=== PATIENT | male | born 1990 | race Caucasian/White ===

== ENCOUNTER 2021-03-02 10:06 | Observation (INO) ==
[2021-03-02] MEDS ORDERED: Tdap (Boostrix) Vaccine 0.5 ML SYRINGE IM ONE (10:57)
[2021-03-02] MEDS ORDERED: Piperacillin/Tazobactam 3.375 GM in 0.9 % Sodium Chloride Mini Bag 100 ML IVPB ONE (10:57)
[2021-03-02] MEDS ORDERED: *HR* LORazepam 2 MG/ML VIAL IVP ONE (11:42)
[2021-03-02 11:43] LABS: Basophils % 0.2 %; Eosinophils # 0.3 K/mcL (0.0-0.6); Eosinophils % 2.8 %; Hematocrit 46.9 % (37.5-50.1); Hemoglobin 15.1 g/dL (12.9-16.9); Immature Granulocytes % 0.4 % (0-4); Lymphocytes # 3.2 K/mcL (0.6-4.6); Lymphocytes % 27.7 %; Mean Corpuscular HGB Conc 32.2 g/dL (31.6-35.5); Mean Corpuscular Hemoglobin 28.9 pg (28.0-33.3); Mean Corpuscular Volume 89.7 fL (83.0-100.0); Mean Platelet Volume 9.8 fL (9.4-12.4); Monocytes % 8.7 %; Neutrophils # 6.9 K/mcL (1.6-8.9); Platelet Count 298 K/mcL (140-400); Red Blood Count 5.23 M/mcL (4.19-5.50); Red Cell Distribution Width 12.7 % (11.5-14.5); Segmented Neutrophils % 60.2 %; White Blood Count 11.4 K/mcL (4.3-11.1)
[2021-03-02 12:02] LABS: BUN/Creatinine Ratio 11 (6-26); Blood Urea Nitrogen 9 mg/dL (6-20); Calcium 9.2 mg/dL (8.6-10.3); Carbon Dioxide 27 mEq/L (23-29); Chloride 105 mEq/L (98-107); Glucose 95 mg/dL (70-105); Osmolality,Calculated 286 (280-300); Sodium 139 mEq/L (136-145); eGFR For African Americans > 60 (> 60); eGFR For Non-African Americans > 60 (> 60)
[2021-03-02] MEDS ORDERED: *HR* LORazepam 1 MG TABLET PO ONE (12:21)
[2021-03-02] MEDS ORDERED: Ondansetron ODT 4 MG TAB.RAPDIS SL PRN (12:44)
[2021-03-02] MEDS ORDERED: Ibuprofen 400 MG TABLET PO PRN (12:44)
[2021-03-02] MEDS ORDERED: Melatonin 3 MG TABLET PO PRN (12:44)
[2021-03-02 12:47] LABS: C-Reactive Protein < 5 mg/L (Less than 10)
[2021-03-02] MEDS ORDERED: CeFAZolin 2,000 MG/120 ML BAG IVPB SCH (13:00)
[2021-03-02] MEDS: Nicotine 2 MG GUM BC PRN ×2 (15:51→21:48)
[2021-03-02] MEDS: Nicotine 21 MG PATCH.TD24 TD SCH (15:51)
[2021-03-02] MEDS: hydrOXYzine pamoate 25 MG CAPSULE PO PRN ×2 (15:51→22:35)
[2021-03-02 19:48] LABS: Amphetamine Screen,Urine Negative ng/mL (Cutoff=1000); Barbiturate Screen,Urine Negative ng/mL (Cutoff=200); Benzodiazepines Screen,Urine Negative ng/mL (Cutoff=200); Cannabinoid Screen,Urine Positive ng/mL (Cutoff = 50); Cocaine Screen,Urine Negative ng/mL (Cutoff= 300); Opiate Screen,Urine Negative ng/mL (Cutoff=300); Phencyclidine Screen,Urine Negative ng/mL (Cutoff=25)
[2021-03-02] MEDS: CeFAZolin 2,000 MG/120 ML BAG IVPB SCH (21:38)
[2021-03-02 23:38] VITALS: O2SAT 98
[2021-03-03 02:37] LABS: Hematocrit 43.5 % (37.5-50.1); Hemoglobin 13.9 g/dL (12.9-16.9); Mean Corpuscular Hemoglobin 28.8 pg (28.0-33.3); Mean Corpuscular Volume 90.2 fL (83.0-100.0); Mean Platelet Volume 10.2 fL (9.4-12.4); Platelet Count 271 K/mcL (140-400); Red Blood Count 4.82 M/mcL (4.19-5.50); Red Cell Distribution Width 12.5 % (11.5-14.5); White Blood Count 10.5 K/mcL (4.3-11.1)
[2021-03-03 02:51] LABS: BUN/Creatinine Ratio 11 (6-26); Blood Urea Nitrogen 10 mg/dL (6-20); Calcium 9.3 mg/dL (8.6-10.3); Carbon Dioxide 26 mEq/L (23-29); Chloride 109 mEq/L (98-107); Glucose 100 mg/dL (70-105); Osmolality,Calculated 291 (280-300); Potassium 4.2 mEq/L (3.5-5.1); Sodium 141 mEq/L (136-145); eGFR For African Americans > 60 (> 60); eGFR For Non-African Americans > 60 (> 60)
[2021-03-03] MEDS: CeFAZolin 2,000 MG/120 ML BAG IVPB SCH (05:09)
[2021-03-03] MEDS: Nicotine 2 MG GUM BC PRN (05:18)
[2021-03-03 07:41] VITALS: BP 125/71; PULSE 67; TEMP 97.9
[2021-03-03] MEDS: Nicotine 21 MG PATCH.TD24 TD SCH (07:57)
== END 2021-03-03 09:11 | disposition home or self-care (01) ==
LOC: 3ANU 10:06 → EMEROOARM 10:06 → SUATTDRO 13:22 → 3ANU 14:02
PROVIDERS: ADMIT Internal Medicine; ATTEND Internal Medicine